=== PATIENT | female | born 1995 | race Caucasian/White ===

== ENCOUNTER 2017-04-27 21:59 | Day surgery (SDC) | payer OTHER ==
[2017-04-27 22:34] VITALS: BMI 31.4
[2017-04-27 23:09] LABS: Amnisure Test No Membranes Rupture (No Rupture)
[2017-04-27 23:10] LABS: Amnisure Internal Control QC ACCEPTABLE (ACCEPTABLE)
--- NOTE | 2017-04-27 23:59 | SS ---
DATE OF SERVICE: 04/27/2017 ATTENDING PHYSICIAN: Yosef Ponce M.D. EVALUATING PHYSICIAN: Efrain Cota M.D. CHIEF COMPLAINT: Abdominal cramping, vaginal wetness. HISTORY OF PRESENT ILLNESS: Ms. Sood is a 22-year-old white G2, P1, estimated date of confinement of 06/22/2017 who presents this evening complaining of intermittent abdominal cramping and vaginal we tness. She denies vaginal bleeding or decreased movement. Her care has been with Dr. Ponce and she has been followed for breech presentation. PAST OBSTETRICAL HISTORY: She had a vaginal delivery at 37 weeks after having a high leak and she re quired induction for this. PAST MEDICAL HISTORY: Reflux. PAST SURGICAL HISTORY: None. CURRENT MEDICATIONS: vitamins. ALLERGIES: PENICILLIN, CEPHALOSPORINS. SOCIAL HISTORY: Denies tobacco, alcohol, or drug use. REVIEW OF SYSTEMS: Denies nausea, vomiting, fever or chills. PHYSICAL EXAMINATION: VITAL SIGNS: Stable. She is afebrile. ABDOMEN: Soft, nontender and gravid. PELVIC EXAM: By the labor nurse shows the cervix to be closed. AmniSure returns negative. he art rate tracing is stable. A single contraction seen, but no other uterine activity is noted. ASSESSMENT: 1. A 33-week intrauterine . 2. No evidence of labor. 3. No evidence of ruptured membranes. PLAN: The patient will be discharged home with labor precautions. I did discuss this with Gaye Ponce and he agrees with the plan.
== END 2017-04-27 23:40 | disposition home or self-care (01) ==
LOC: L&D/OP 21:59
PROVIDERS: ATTEND Obstetrics & Gynecology
DX: O99.89 Other specified diseases and conditions complicating pregnancy, childbirth and the puerperium (principal); R10.9 Unspecified abdominal pain; O99.613 Diseases of the digestive system complicating pregnancy, third trimester; K21.9 Gastro-esophageal reflux disease without esophagitis; Z88.0 Allergy status to penicillin; Z88.1 Allergy status to other antibiotic agents; Z79.899 Other long term (current) drug therapy; Z91.018 Allergy to other foods; Z3A.33 33 weeks gestation of pregnancy
CPT/HCPCS: 84112; 99283

== ENCOUNTER 2017-06-12 20:49 | Inpatient (IN) | payer OTHER ==
[2017-06-12 21:17] VITALS: BMI 33.9
[2017-06-13 00:16] LABS: Amnisure Internal Control QC ACCEPTABLE (ACCEPTABLE)
[2017-06-13 00:27] LABS: Amnisure Test No Membranes Rupture (No Rupture)
[2017-06-13] MEDS: Lactated Ringer's 1,000 ML IV SCH ×3 (07:30→10:56)
[2017-06-13 08:11] LABS: Hemoglobin 10.8 g/dL (12.0-16.0); Mean Corpuscular HGB CONC 33.9 g/dL (32.0-36.0); Mean Corpuscular Volume 76.7 fl (81.0-99.0); Mean Platelet Volume 8.7 fL (7.4-10.4); Platelet Count 213 thou/uL (130-400); RBC Distribution Width 13.2 % (11.5-14.5); Red Blood Cell (RBC) Count 4.14 mill/uL (4.20-5.40)
[2017-06-13] MEDS ORDERED: DISCONTINUE ALL PREVIOUS NARCOTICS FS SCH (08:15)
[2017-06-13 08:38] LABS: HBSAg Index 0.25 S/CO (0-0.99); Hep B Surf Ag Non-Reactive S/CO (NonReactive)
[2017-06-13 08:39] LABS: Syphilis Antibody Nonreactive (Nonreactive); Syphilis Antibody Index 0.03 S/CO (<1.00 Non-Reactive)
[2017-06-13] MEDS: Bupivacaine 0.5% 20 ML, fentaNYL Citrate/PF 400 MCG in Sodium Chloride 0.9% 72 ML EPIDURAL SCH ×2 (08:45→16:20)
[2017-06-13] MEDS ORDERED: ePHEDrine/0.9% NaCl/PF SYRINGE 50 mg/10 ml SLOW IVP PRN (08:52)
[2017-06-13] MEDS ORDERED: diphenhydrAMINE 50 MG/ML VIAL IVP PRN (08:52)
[2017-06-13] MEDS ORDERED: Promethazine HCl 25 MG/ML VIAL IM PRN (08:52)
[2017-06-13] MEDS ORDERED: Ondansetron HCl/PF 4 MG/2 ML Vial IVP PRN ×3 (08:52→18:16)
[2017-06-13] MEDS ORDERED: Eucerin (Mineral Oil/Petrolatum,White) 30 gm Jar TOP PRN (08:52)
[2017-06-13] MEDS ORDERED: Naloxone HCl 0.4 mg/ml Vial IVP PRN ×2 (08:52)
[2017-06-13] MEDS ORDERED: Acetaminophen 325 MG TAB PO PRN (08:52)
[2017-06-13] MEDS ORDERED: Lactated Ringer's 500 ML IV PRN (08:52)
[2017-06-13] MEDS ORDERED: Communication Order-Pharmacy FS SCH (09:00)
[2017-06-13] MEDS ORDERED: Fentanyl 4mcg/Marcaine 0.1% Cassette 100 ML EPIDURAL SCH (09:00)
[2017-06-13] MEDS ORDERED: LR 500 ML/Oxytocin 10 units 500 ML ONE (13:45)
[2017-06-13] MEDS ORDERED: LR 500 ML/Oxytocin 10 units 500 ML IV SCH (14:15)
[2017-06-13] MEDS ORDERED: Lidocaine 1% (PF) 30 ML VIAL ONE (14:44)
[2017-06-13] MEDS ORDERED: LR / Pitocin 40 units/1000 ml 1,000 ML ONE (14:44)
[2017-06-13] MEDS ORDERED: Milk Of Magnesia 30 ML UDCUP PO PRN ×2 (18:16→19:00)
[2017-06-13] MEDS ORDERED: Adacel (T-DAP) 0.5 ML VIAL IM ONE (18:16)
[2017-06-13] MEDS ORDERED: Lanolin Ointment 7 GM TUBE TOP PRN (18:16)
[2017-06-13] MEDS ORDERED: Preparation H Ointment 28 GM TUBE PR PRN (18:16)
[2017-06-13] MEDS ORDERED: Benzocaine/Menthol 20-0.5% 60 ML CAN TOP PRN (18:16)
[2017-06-13] MEDS ORDERED: diphenhydrAMINE 25 MG CAP PO PRN (18:16)
[2017-06-13] MEDS ORDERED: HYDROcodone/Acetaminophen 5/325 mg Tablet PO PRN ×5 (18:16→22:18)
[2017-06-13] MEDS ORDERED: Zolpidem Tartrate 5 MG TAB PO PRN (18:16)
[2017-06-13] MEDS ORDERED: Bisacodyl 10 MG SUPP PR PRN (18:16)
[2017-06-13] MEDS ORDERED: LR / Pitocin 40 units/1000 ml 1,000 ML IV SCH (18:30)
[2017-06-13] MEDS: Ibuprofen 800 MG TAB PO SCH (20:30)
[2017-06-13] MEDS: Docusate Calcium (SURFAK) 240 MG CAP PO SCH (21:43)
[2017-06-14] MEDS: HYDROcodone/Acetaminophen 5/325 mg Tablet PO PRN ×3 (01:23→17:06)
[2017-06-14] MEDS: Ibuprofen 800 MG TAB PO SCH ×2 (04:24→11:53)
[2017-06-14 06:10] LABS: Hemoglobin 10.6 g/dL (12.0-16.0); Mean Corpuscular HGB CONC 32.9 g/dL (32.0-36.0); Mean Corpuscular Hemoglobin 25.1 pg (27.0-31.0); Mean Corpuscular Volume 76.4 fl (81.0-99.0); Mean Platelet Volume 8.8 fL (7.4-10.4); Platelet Count 216 thou/uL (130-400); RBC Distribution Width 13.3 % (11.5-14.5); Red Blood Cell (RBC) Count 4.23 mill/uL (4.20-5.40); White Blood Cell (WBC) Count 14.2 thou/uL (4.8-10.8)
[2017-06-14 08:25] VITALS: TEMP 98
[2017-06-14] MEDS ORDERED: Prenatal Vitamin 1 TAB PO SCH (09:00)
[2017-06-14] MEDS: Ferrous Sulfate 325 MG TAB PO SCH ×2 (09:00→17:12)
[2017-06-14] MEDS: Docusate Calcium (SURFAK) 240 MG CAP PO SCH (09:12)
[2017-06-14 14:23] VITALS: BP 123/80
== END 2017-06-14 19:10 | disposition home or self-care (01) | DRG 775 ==
LOC: L&D/OP 20:49 → L&D 06-13 07:45 → 3SW 06-13 21:04
PROVIDERS: ADMIT Obstetrics & Gynecology; ATTEND Obstetrics & Gynecology
PROC: 10E0XZZ Delivery of Products of Conception, External Approach (ICD-10-PCS; principal; 2017-06-13)
DX: O80 Encounter for full-term uncomplicated delivery (principal); Z37.0 Single live birth; Z3A.38 38 weeks gestation of pregnancy
CPT/HCPCS: 36415; 51702; 84112; 85027; 86780; 87340; 90715; 99285; J1200; J2001; J3010; J3490; J7050; J7120